=== PATIENT | male | born 1940 | race Hispanic/Latino ===

== ENCOUNTER 2016-08-03 00:56 | Emergency (ER) | payer BC, MEDICARE ==
[2016-08-03 01:01] VITALS: BMI 26.6
[2016-08-03 01:03] VITALS: BP 178/76; PULSE 69; RESP 18; TEMP 98.1; O2SAT 97
--- NOTE | 2016-08-03 01:20 | ED PDOC ---
Arrival/HPI - General Chief Complaint: ENT Problem Time Seen by Provider: 08/03/16 01:12 Historian: Patient, Spouse - History of Present Illness Narrative History of Present Illness (Text): 08/03/16 01:16 Patient presents to the emergency room complaining of left ear pain 1 day, has taken Tylenol and Advil prior to arrival with no relief. States he also applied eardrops with no relief prompting ER visit. On further questioning, patient reports that he does not know the name of the eardrops that he applied into his ear. Denies any trauma, fever, headache, sore throat, cough, rash. Has no other complaints. 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" - Hematological/Oncological Hx Blood Transfusions: No Hx Blood Transfusion Reaction: No - Musculoskeletal/Rheumatological Hx Falls: No - Psychiatric Hx Substance Use: No - Surgical History Other/Comment: 2 sx's for collapsed r lung age 15 - Anesthesia Hx Anesthesia Reactions: No Hx Malignant Hyperthermia: No Family/Social History - Physician Review Nursing Documentation Reviewed: Yes Family/Social History: No Known Family HX Smoking Status: Former Smoker Hx Alcohol Use: No Hx Substance Use: No Allergies/Home Meds Allergies/Adverse Reactions: Allergies No Known Allergies Allergy (Verified 08/03/16 00:58) Home Medications: Home Meds Medication Instructions Recorded Confirmed Zolpidem [Ambien] 10 mg PO HS 10/07/15 08/03/16 Review of Systems - Review of Systems Constitutional: Normal. absent: Fatigue, Weight Change, Fevers Eyes: Normal. absent: Vision Changes, Photophobia ENT: Normal, Other (Ear pain). absent: Hearing Changes, Tinnitus, Rhinorrhea, Epistaxis Respiratory: Normal. absent: SOB, Cough, Sputum Skin: Normal. absent: Rash, Pruritis, Skin Lesions Physical Exam Vital Signs Reviewed: Yes Vital Signs Temp Pulse Resp BP Pulse Ox 08/03/16 01:02 98.1 F 69 18 178/76 H 97 Temperature: Afebrile Blood Pressure: Hypertensive Pulse: Regular Respiratory Rate: Normal Appearance: Positive for: Well-Appearing, Non-Toxic, Comfortable Pain Distress: Mild Mental Status: Positive for: Alert and Oriented X 3 - Systems Exam Head: Present: Atraumatic, Normocephalic Pupils: Present: PERRL Extroacular Muscles: Present: EOMI Conjunctiva: Present: Normal. No: Injected, Icteric Ears: Present: NORMAL TM, Normal Canal (R ear), Other (L ear (+) edema with white exudates and discharge noted) Mouth: Present: Moist Mucous Membranes Pharnyx: Present: Normal. No: ERYTHEMA, EXUDATE Nose (External): Present: Atraumatic Nose (Internal): Present: Normal Inspection Neck: Present: Normal Range of Motion. No: Meningeal Signs, Lymphadenopathy Respiratory/Chest: Present: Clear to Auscultation. No: Respiratory Distress, Accessory Muscle Use, Wheezes, Decreased Breath Sounds Cardiovascular: Present: Regular Rate and Rhythm, Normal S1, S2. No: Murmurs Medical Decision Making ED Course and Treatment: 08/03/16 01:19 76 yo M presents with left ear pain, on exam patient is noted to have otitis externa. Patient medicated with Cortisporin ear drops to the left ear and given tramadol by mouth for pain. Based on history and exam, plan will be for outpatient follow-up with PMD. Patient states she fully agrees with and understands discharge instructions. States that she agrees with the plan and disposition. Verbalized and repeated discharge instructions and plan. I have given the patient opportunity to ask any additional questions. Follow up with primary care physician in 1-2 days without fail. Advised to take medication as prescribed. Return to the emergency room at any time for any new or worsening symptoms. - PA / INSTRUMENT TECHNOLOGIST / Resident Statement MD/DO has reviewed & agrees with the documentation as recorded. Disposition/Present on Arrival - Present on Arrival Any Indicators Present on Arrival: No History of DVT/PE: No History of Uncontrolled Diabetes: No Urinary Catheter: No History of Decub. Ulcer: No History Surgical Site Infection Following: None - Disposition Have Diagnosis and Disposition been Completed?: Yes Diagnosis: Otitis externa of left ear Disposition: HOME/ ROUTINE Disposition Time: 01:20 Patient Plan: Discharge Condition: STABLE Discharge Instructions (ExitCare): Otitis Externa (ED) Print Language: AZERBAIJANI Additional Instructions: Thank you for letting us take care of you today. You were treated for otitis externa left ear. The emergency medical care you received today was directed at your acute symptoms. If you were prescribed any medication, please fill it and take as directed. It may take several days for your symptoms to resolve. Return to the Emergency Department if your symptoms worsen, do not improve, or if you have any other problems. Please contact your doctor in 2 days for re-evaluation and follow up. Bring any paperwork you were given at discharge with you along with any medications you are taking to your follow up visit. Our treatment cannot replace ongoing medical care by a primary care provider (PCP) outside of the emergency department. Thank you for allowing the [facility] team to be part of your care today. Prescriptions: Neomycin/Polymyxin/Hydrocort [Cortisporin Otic Soln] 4 drop OS QID #1 bottle
[2016-08-03] MEDS ORDERED: Neomycin/Polymyxin/Hydrocort Otic Soln BOTTLE AS ONE (01:23)
== END 2016-08-03 01:50 | disposition home or self-care (01) ==
LOC: ED 00:56
DX: H60.92 Unspecified otitis externa, left ear (principal); Z87.891 Personal history of nicotine dependence

== ENCOUNTER 2016-08-03 23:09 | Emergency (ER) | payer BC, MEDICARE ==
[2016-08-03 23:10] VITALS: BMI 26.6
== END 2016-08-03 23:56 | disposition left against medical advice (07) ==
LOC: ED 23:09
DX: Z02.89 Encounter for other administrative examinations (principal); Z00.00 Encounter for general adult medical examination without abnormal findings